=== PATIENT | female | born 1975 | race Two or more races ===

== ENCOUNTER 2016-08-24 19:07 | Emergency (ER) | payer OTHER ==
[2016-08-24 19:18] VITALS: BP 126/74; PULSE 70; TEMP 97.8; BMI 44.2
--- NOTE | 2016-08-24 19:58 | PDOC ---
History of Present Illness - History of Present Illness Initial Comments: 08/24/16 20:30 The patient is a 41 year old female with a past medical hx of uterine bleeding, IBS, s/p suburethral sling (2015), hysterectomy (2013) who presents to the ED complaining of left flank pain for six days. The patient reports her pain initially started off in her pelvic region but is now in her left flank radiating into her left groin. The patient denies hematuria, dysuria, frequency The patient denies nausea, vomiting, diarrhea Surgical: Cholecystectomy, hysterectomy, suburethral sling PCP: Dr. Galan GI: Dr. Ho <Camila Stallings - Last Filed: 08/25/16 00:02> <Namrata Soriano - Last Filed: 08/25/16 00:21> - General Chief Complaint: Pain, Acute Stated Complaint: PAIN, ACUTE Time Seen by Provider: 08/24/16 19:43 Past History <Camila Stallings - Last Filed: 08/25/16 00:02> - Past Medical History Anemia: No Asthma: Yes (CHILDHOOD) Cancer: No Cardiac Disorders: No CVA: No COPD: No CHF: No Dementia: No Diabetes: No GI Disorders: Yes (IBS) Disorders: No HTN: No Hypercholesterolemia: Yes Liver Disease: No Psychiatric Problems: Yes (BIPOLAR) Seizures: No Thyroid Disease: No Other medical history: Herpes - Surgical History Abdominal Surgery: Yes (Gallbladder) Appendectomy: No Cardiac Surgery: No Cholecystectomy: Yes Lung Surgery: No Neurologic Surgery: No Orthopedic Surgery: No - Reproductive History (#): 9 Para: 3 Therapeutic (s) & number: Yes Spontaneous : 3 - Immunization History Immunization Up to Date: Yes - Psycho/Social/Smoking Cessation Hx Anxiety: No Suicidal Ideation: No Smoking History: Never smoked Have you smoked in the past 12 months: No Number of Cigarettes Smoked Daily: 0 If you are a former smoker, when did you quit?: YEARS AGO Information on smoking cessation initiated: No 'Breaking Loose' booklet given: 05/12/13 Hx Alcohol Use: No Drug/Substance Use Hx: Yes (marijuana) Substance Use Type: Marijuana Hx Substance Use Treatment: Yes (MARIJUANA) <Namrata Soriano - Last Filed: 08/25/16 00:21> - Past Medical History Allergies/Adverse Reactions: Allergies Allergy/AdvReac Type Severity Reaction Status Date / Time No Known Drug Allergies Allergy Verified 08/24/16 19:19 Review of Systems - Review of Systems Able to Perform ROS?: Yes Comments:: 08/24/16 20:31 CONSTITUTIONAL: Absent: fever, chills, diaphoresis, generalized weakness, malaise, loss of appetite HEENT: Absent: rhinorrhea, nasal congestion, throat pain, throat swelling, difficulty swallowing, mouth swelling, ear pain, eye pain, visual Changes CARDIOVASCULAR: Absent: chest pain, syncope, palpitations, irregular heart rate, lightheadedness , peripheral edema RESPIRATORY: Absent: cough, shortness of breath, dyspnea with exertion, orthopnea, wheezing, stridor, hemoptysis GASTROINTESTINAL: Absent: abdominal pain, abdominal distension, nausea, vomiting, diarrhea, constipation, melena, hematochezia GENITOURINARY: +Left flank pain, left groin pain. Absent: dysuria, frequency, urgency, hesitancy, hematuria MUSCULOSKELETAL: Absent: myalgia, arthralgia, joint swelling SKIN: Absent: rash, itching, pallor NEUROLOGIC: Absent: headache, focal weakness or paresthesias, dizziness, unsteady gait, seizure, mental status changes, bladder or bowel incontinence PSYCHIATRIC: Absent: anxiety, depression, suicidal or homicidal ideation, hallucinations. <Camila Stallings - Last Filed: 08/25/16 00:02> *Physical Exam - Vital Signs Last Vital Signs Temp Pulse Resp BP Pulse Ox 97.8 F 70 19 126/74 99 08/24/16 19:13 08/24/16 19:13 08/24/16 19:13 08/24/16 19:13 08/24/16 19:13 - Physical Exam Comments: 08/24/16 20:31 GENERAL: Well developed, well nourished. Awake and alert. No acute distress. HEENT: Normocephalic, atraumatic. PERRLA, EOMI. No conjunctival pallor. Sclera are non- icteric. Moist mucous membranes. Oropharynx is clear. NECK: Supple. Full ROM. No JVD. Carotid pulses 2+ and symmetric, without bruits. No thyromegaly. No lymphadenopathy. CARDIOVASCULAR: Regular rate and rhythm. No murmurs, rubs, or gallops. Distal pulses are 2+ and symmetric. PULMONARY: No evidence of respiratory distress. Lungs clear to auscultation bilaterally. No wheezing, rales or rhonchi. ABDOMINAL: Soft. Non-tender. Non-distended. No rebound or guarding. No organomegaly. Normoactive bowel sounds. MUSCULOSKELETAL Normal range of motion at all joints. No bony deformities or tenderness. No CVA tenderness. EXTREMITIES: No cyanosis. No clubbing. No edema. No calf tenderness. SKIN: Warm and dry. Normal capillary refill. No rashes. No jaundice. NEUROLOGICAL: Alert, awake, appropriate. Cranial nerves 2-12 intact. No deficits to light touch and temperature in face, upper extremities and lower extremities. No motor deficits in the in face, upper extremities and lower extremities. Normoreflexic in the upper and lower extremities. Normal speech. Toes are down-going bilaterally. Gait is normal without ataxia. PSYCHIATRIC: Cooperative. Good eye contact. Appropriate mood and affect. <Camila Stallings - Last Filed: 08/25/16 00:02> - Vital Signs Last Vital Signs Temp Pulse Resp BP Pulse Ox 97.8 F 70 19 126/74 99 08/24/16 19:13 08/24/16 19:13 08/24/16 19:13 08/24/16 19:13 08/24/16 19:13 <Namrata Soriano - Last Filed: 08/25/16 00:21> ED Treatment Course - LABORATORY CBC & Chemistry Diagram: 08/24/16 21:02 08/24/16 21:02 - RADIOLOGY Radiograph Interpretation: 08/25/16 00:02 CT/ABDOMEN PELVIS CT WITH CONTR Impression: CT imaging completed with no suspicious findings in the left flank and normal images through the region of left retroperitoneum and left groin with no adenopathy, mass or fluid collections seen No CT evidence of diverticulitis or colitis. No evidence of hydronephrosis or stones. Reported By: Migue Starks MD 08/24/16 0312 - Medications Given in the ED: ED Medications Discontinued Medications Generic Name Dose Route Start Last Admin Trade Name Freq PRN Reason Stop Dose Admin Ketorolac Tromethamine 60 mg 08/24/16 20:12 08/24/16 20:29 Toradol Injection - IVPUSH 08/24/16 20:13 Not Given ONCE ONE <Camila Stallings - Last Filed: 08/25/16 00:02> - LABORATORY CBC & Chemistry Diagram: 08/24/16 21:02 08/24/16 21:02 <Namrata Soriano - Last Filed: 08/25/16 00:21> Medical Decision Making - Medical Decision Making 08/25/16 00:08 41 yo female p/w left flank/backpain that radiates to Left groin pt states she is s/p TAHBSO because of fibroids differential diag includes kidney stones ,UTI,pyelo, musculoskeletal strain UA negative cbc and chemistries unremarkable ct scn abd /pel: no hydronephrosis,no nephrolithiasis,no diverticulitis,no aortic dissection IMP musculoskeletal strain/pain 08/25/16 00:18 <Namrata Soriano - Last Filed: 08/25/16 00:21> *DC/Admit/Observation/Transfer - Attestations Scribe Attestion: 08/24/16 20:30 Documentation prepared by Camila Stallings, acting as medical safety director for Namrata Soriano MD/DO. <Camila Stallings - Last Filed: 08/25/16 00:02> <Namrata Soriano - Last Filed: 08/25/16 00:21> Diagnosis at time of Disposition: Left flank pain Abdominal pain Qualifiers: Abdominal location: left lower quadrant Qualified Code(s): R10.32 - Left lower quadrant pain - Discharge Dispostion Disposition: HOME Condition at time of disposition: Stable - Referrals Referrals: Darius Galan [Primary Care Provider] - - Patient Instructions Printed Discharge Instructions: DI for Flank Pain, DI for Abdominal Pain-Adult Additional Instructions: please followup with your primary physician for further evaluation return to the emergency department if you have worsening symptoms
[2016-08-24] MEDS ORDERED: SODIUM CHLORIDE 1,000 ML IV STA (20:11)
[2016-08-24] MEDS ORDERED: KETOROLAC TROMETHAMINE 60 MG/2 ML VIAL IVPUSH ONE (20:12)
[2016-08-24] MEDS ORDERED: KETOROLAC TROMETHAMINE 60 MG/2 ML VIAL ONE (20:24)
[2016-08-24] MEDS ORDERED: KETOROLAC TROMETHAMINE 60 MG/2 ML VIAL IM ONE (20:29)
[2016-08-24 21:19] LABS: BASOPHIL 0.5 % (0-2.0); EOSINOPHIL 1.4 % (0-4.5); MCHC 33.5 g/dl (32.0-36.0); MEAN CELL VOLUME 86.5 fl (80-96); MEAN PLT VOLUME 10.7 fl (7.5-11.1); NEUTROPHILS 56.5 % (42.8-82.8); PLATELET COUNT 168 K/MM3 (134-434); RDW 13.7 % (11.6-15.6); WHITE BLOOD COUNT 10.7 K/mm3 (4.0-10.0)
[2016-08-24 21:27] LABS: URINE APPEARANCE CLEAR; URINE BILIRUBIN NEGATIVE (NEGATIVE); URINE BLOOD NEGATIVE (NEGATIVE); URINE COLOR LTYELLOW; URINE GLUCOSE (UA) NEGATIVE (NEGATIVE); URINE KETONE NEGATIVE (NEGATIVE); URINE LEUK ESTERASE NEGATIVE (NEGATIVE); URINE NITRITE NEGATIVE (NEGATIVE); URINE PROTEIN NEGATIVE (NEGATIVE); URINE UROBILINOGEN NEGATIVE E.U./dl (0.2-1.0)
[2016-08-24 21:41] LABS: ALBUMIN 4.1 g/dl (3.4-5.0); ANION GAP 8 (8-16); BILIRUBIN,TOTAL 0.4 mg/dL (0.2-1.0); CALCIUM 9.2 mg/dL (8.5-10.1); CO2 25 mmol/L (21-32); COCKROFT - GAULT 209.4995; CREATININE 0.6 mg/dL (0.55-1.02); GLUCOSE,RANDOM 87 mg/dL (74-106); SGOT/AST 19 U/L (15-37); SGPT/ALT 29 U/L (12-78); TOT PROT 7.3 g/dl (6.4-8.2)
[2016-08-24 21:42] LABS: ALK PHOS 51 U/L (45-117)
== END 2016-08-25 00:25 | disposition home or self-care (01) ==
LOC: JER 19:07
PROC: 3E0337Z Introduction of Electrolytic and Water Balance Substance into Peripheral Vein, Percutaneous Approach (ICD-10-PCS; principal; 2016-08-24)
PROC: 3E0233Z Introduction of Anti-inflammatory into Muscle, Percutaneous Approach (ICD-10-PCS; 2016-08-24)
DX: R10.32 Left lower quadrant pain (principal)
CPT/HCPCS: 36415; 74177-TC; 80053; 81003; 85025; 96360; 96372; 99283-25

== ENCOUNTER 2020-08-07 04:25 | Day surgery (SDC) | payer OTHER ==
[2020-08-05 15:11] VITALS: BMI 43.0
[2020-08-07 10:17] VITALS: TEMP 97.3
[2020-08-07] MEDS ORDERED: ALBUTEROL SO4 0.083% IH SOL 2.5 MG/3 ML VIAL.NEB. NEB ONE (10:48)
[2020-08-07 11:49] VITALS: BP 114/70; PULSE 70
== END 2020-08-07 11:45 | disposition home or self-care (01) ==
LOC: JASU-ENDO 04:25
PROVIDERS: ATTEND Internal Medicine Gastroenterology
PROC: 0DJD8ZZ Inspection of Lower Intestinal Tract, Via Natural or Artificial Opening Endoscopic (ICD-10-PCS; principal; 2020-08-07 10:00)
DX: R10.32 Left lower quadrant pain (principal)
CPT/HCPCS: 94640

== ENCOUNTER 2024-02-17 22:45 | Emergency (ER) | payer OTHER ==
[2024-02-17 22:53] VITALS: BP 115/77; PULSE 76; RESP 18; TEMP 98.2; BMI 41.3
[2024-02-17] MEDS ORDERED: ACETAMINOPHEN 500 MG TABLET (FP) ONE (23:59)
[2024-02-18] MEDS: ACETAMINOPHEN 500 MG TABLET (FP) PO ONE
[2024-02-18] MEDS ORDERED: METHOCARBAMOL 500 MG TABLET ONE (00:59)
[2024-02-18] MEDS ORDERED: LIDOCAINE 4% PATCH TP ONE (01:00)
[2024-02-18] MEDS: LIDOCAINE 4% PATCH TP ONE (01:02)
[2024-02-18] MEDS: METHOCARBAMOL 750 MG TAB PO ONE (01:02)
[2024-02-18] MEDS ORDERED: LIDOCAINE PATCH REMOVAL MC ONE (13:00)
== END 2024-02-18 01:34 | disposition home or self-care (01) ==
LOC: JER 22:45
DX: S86.112A Strain of other muscle(s) and tendon(s) of posterior muscle group at lower leg level, left leg, initial encounter (principal); X50.1XXA Overexertion from prolonged static or awkward postures, initial encounter
CPT/HCPCS: 73590-TC-LT-FY; 99283-25